=== PATIENT | male | born 1935 | race American Indian/Alaskan Native ===

== ENCOUNTER 2016-07-09 07:21 | Outpatient (CLI) | payer MEDICARE, OTHER ==
--- NOTE | 2016-07-09 09:26 | XRay Report ---
CHEST 2 VIEWS INDICATION: History of asbestos exposure. COMPARISON: 02/28/2009 CXR and 11/25/[address] findings. FINDINGS: Frontal and lateral chest radiographs demonstrate grossly normal cardiomediastinal silhouette. Aortic knob calcifications. Right hemidiaphragm may be mildly elevated with subjacent hepatic flexure lucency. No large pleural effusions or CHF. Mild left apical scarring or pleural thickening. Slight left lower lobe scarring may also be present. Possible osteopenia. Age-appropriate, slight thoracic spine degenerative spurring. CONCLUSION: No significant acute chest process with few incidental findings, as above. Thank you for the opportunity to participate in this patient's care.
--- NOTE | 2016-07-09 09:51 | Cat Scan Report ---
CT scan of chest without IV contrast: Compared to 11/25/14. History: Asbestosis exposure. Findings: Bilateral fibrotic changes identified in the upper and lower lobes predominantly with scattered areas of fibrosis in right and left mid lung. No significant interval change. Granulomatous changes are also noted with scattered nodules without interval change. Calcified pleural plaques appears stable. No evidence of pleural effusion or pericardial effusion or mediastinal mass or adenopathy. No significant interval change. Impression: Stable fibrotic and granulomatous changes bilaterally without significant interval change. No mass. No acute lung changes.
== END 2016-07-09 07:22 | disposition home or self-care (01) ==
LOC: CT 07:21
PROVIDERS: ATTEND Internal Medicine
DX: J84.10 Pulmonary fibrosis, unspecified (principal); J98.6 Disorders of diaphragm; J92.9 Pleural plaque without asbestos; I70.0 Atherosclerosis of aorta; Z77.090 Contact with and (suspected) exposure to asbestos
CPT/HCPCS: 71020; 71250

== ENCOUNTER 2017-04-17 11:15 | Emergency (ER) | payer MEDICARE, OTHER ==
[2017-04-17 11:27] VITALS: BP 146/59
[2017-04-17 11:49] LABS: Hematocrit 38.3 % (35.5-45.6); Hemoglobin 12.4 gm/dl (11.8-15.2); Mean Corpuscular HGB Conc 32 % (32-34); Mean Corpuscular Hemoglobin 32 pg (28-32); Mean Corpuscular Volume 98 fl (84-94); Platelet Count 106 K/mm3 (140-440); Red Blood Count 3.91 M/mm3 (3.65-5.03); Red Cell Distribution Width 14.7 % (13.2-15.2)
[2017-04-17 11:59] LABS: INR 0.9 (0.87-1.13)
[2017-04-17 12:00] LABS: Partial Thromboplastin Time 28.2 Sec. (24.2-36.6)
[2017-04-17 12:01] LABS: BUN/Creatinine Ratio 22; Blood Urea Nitrogen 24 mg/dL (9-20); Calcium 8.9 mg/dL (8.4-10.2); Hemolysis Index 19
== END 2017-04-17 11:50 | disposition left against medical advice (07) ==
LOC: ED 11:15
DX: R04.0 Epistaxis (principal); Z53.21 Procedure and treatment not carried out due to patient leaving prior to being seen by health care provider
CPT/HCPCS: 36415; 80048; 85027; 85610; 85730